=== PATIENT | male | born 1970 | race Caucasian/White ===

== ENCOUNTER 2019-03-05 07:27 | Emergency (ER) | payer MEDICAID ==
[~2019-03-05] VITALS: Ht 182.9 cm; Wt 97.7 kg
[~2019-03-05 07:27] MED LIST: BUPR300T4 PO; HYDR-826 PO; QUET300T5 PO
[2019-03-05 07:30] VITALS: BP 115/64
--- NOTE | 2019-03-05 07:38 | NUR ---
FIRST CONTACT WITH PT. PT HERE FOR MEDICATION REFILL FOR WELBUTRIN AND SEROQUEL. NO SX. PT'S AOX4. RESPS EVEN AND UNLABORED.
--- NOTE | 2019-03-05 07:52 | NUR ---
Patient given discharge instructions and they have confirmed that they understand the instructions. Patient ambulatory with steady gait.
== END 2019-03-05 07:53 | disposition home or self-care (01) ==
LOC: ED 07:44
DX: F31.9 Bipolar disorder, unspecified (principal); Z76.0 Encounter for issue of repeat prescription; F43.10 Post-traumatic stress disorder, unspecified; F17.200 Nicotine dependence, unspecified, uncomplicated
CPT/HCPCS: 99283